=== PATIENT | female | born 1970 | race Caucasian/White ===

== ENCOUNTER → 2020-10-18 10:38 | Outpatient (BNVA) | payer MEDICARE, MEDICAID, SELFPAY | PROVIDERS: PCP Nurse Practitioner; Visit Provider Nurse Practitioner | DX: I10 Essential (primary) hypertension (principal); F41.1 Generalized anxiety disorder | CPT/HCPCS: 80053; 80061; 84443; 85025 ==

== ENCOUNTER → 2021-05-08 14:54 | Outpatient (BNVA) | payer MEDICARE, MEDICAID, SELFPAY | PROVIDERS: PCP Nurse Practitioner; Visit Provider Nurse Practitioner | DX: I10 Essential (primary) hypertension (principal); E78.5 Hyperlipidemia, unspecified | CPT/HCPCS: 80053; 80061; 81000; 85025 ==

== ENCOUNTER 2021-07-10 06:39 | Outpatient (CLI) | payer MEDICARE, MEDICAID, SELFPAY ==
--- NOTE | 2021-07-10 07:15 | USCV_ITS ---
Kylie Cisneros Age: 51 Gender: F : 1970 Exam Date: 07/10/2021 06:53 Ordering Phys: Moe Clayton Technologist: LOLIS [place] [facility] [place]: HEART MURMUR BP: 128 / 83 HR: 77 Rhythm: Sinus Technical Quality: Adequate MEASUREMENTS (Male / Female) Normal Values 2D ECHO LV Diastolic Diameter PLAX 3.2 cm 4.2 - 5.9 / 3.9 - 5.3 cm LV Systolic Diameter PLAX 2.3 cm IVS Diastolic Thickness 1.0 cm 0.6 - 1.0 / 0.6 - 0.9 cm IVS Systolic Thickness 1.6 cm LVPW Diastolic Thickness 1.3 cm 0.6 - 1.0 / 0.6 - 0.9 cm LVPW Systolic Thickness 1.3 cm RV Chamber Size 2.6 cm LVOT Diameter 2.0 cm LV Ejection Fraction 2D Teich 54.3 % LV Ejection Fraction MOD 2C 67.3 % LV Ejection Fraction 2C AL 66.7 % LA Diameter 3.1 cm LA Width 3.1 cm LA Height 3.8 cm RA Width 2.3 cm RA Height 3.6 cm Aorta at Sinotubular Diameter 2.3 cm M-MODE Aortic Annulus Diameter 2.5 cm LA Ao Ratio MM 1.3 MV E Point Septal Separation 0.4 cm DOPPLER AV Peak Velocity 146.0 cm/s LVOT Peak Velocity 82.0 cm/s AV Area Cont Eq vti 1.4 cm squared AV Area Cont Eq pk 1.8 cm squared MV Area PHT 4.5 cm squared Mitral E to A Ratio 1.0 MV E' Velocity 52.0 cm/s Mitral E to MV E' Ratio 9.2 Mitral E to LV E' Lateral Ratio 9.0 Mitral E to LV E' Septal Ratio 9.4 TR Peak Velocity 256.7 cm/s TR Peak Gradient 26.4 mmHg TV Peak E Velocity 51.0 cm/s Right Atrial Pressure 3.0 mmHg Pulmonary Artery Systolic Pressu 29.4 mmHg PV Peak Velocity 76.0 cm/s RV Acceleration Time 0.0 s RV Ejection Time 0.3 s RV AcT/ET 0.1 FINDINGS Left Ventricle Normal left ventricular size, systolic function and wall thickness, with no regional wall motion abnormalities. Normal left ventricular wall thickness. Normal diastolic filling pattern. LV ejection fraction around 67% Right Ventricle The right ventricle is normal in size and function. Right Atrium The right atrium is normal in size. Left Atrium The left atrium is normal in size. Mitral Valve Trace to mild mitral valve regurgitation. Aortic Valve No gross abnormalities noted Tricuspid Valve Trace tricuspid valve regurgitation. . Estimated pulmonary peak systolic pressure of 29 mmHg Pulmonic Valve Pulmonic valve not well visualized. Pericardium Normal pericardium without effusion. Aorta Normal ascending aorta dimension. CONCLUSIONS Normal left ventricular size, systolic function and wall thickness, with no regional wall motion abnormalities. Normal left ventricular wall thickness. Normal diastolic filling pattern. LV ejection fraction around 67%. Trace to mild mitral valve regurgitation. Trace tricuspid valve regurgitation. . Estimated pulmonary peak systolic pressure of 29 mmHg. There is no pericardial effusion. There are no intracardiac masses. No previous study is available for comparison. Dr Vincenzo Cline MD FACC (Electronically Signed) Final Date: 10 July 2021 13:26 S
== END 2021-07-10 06:40 | disposition home or self-care (01) ==
LOC: RAD 06:43
PROVIDERS: PCP Nurse Practitioner; Visit Provider Nurse Practitioner
DX: R01.1 Cardiac murmur, unspecified (principal); I08.1 Rheumatic disorders of both mitral and tricuspid valves
CPT/HCPCS: 93306

== ENCOUNTER → 2021-10-25 09:02 | Outpatient (BNVA) | payer MEDICARE, MEDICAID, SELFPAY | PROVIDERS: PCP Nurse Practitioner; Visit Provider Nurse Practitioner | DX: I10 Essential (primary) hypertension (principal); E78.5 Hyperlipidemia, unspecified | CPT/HCPCS: 80053; 80061; 85025 ==

== ENCOUNTER → 2021-11-02 15:38 | Outpatient (BNVA) | payer MEDICARE, MEDICAID, SELFPAY | PROVIDERS: PCP Nurse Practitioner; Visit Provider Nurse Practitioner | DX: M79.671 Pain in right foot (principal) | CPT/HCPCS: 73630 ==

== ENCOUNTER → 2021-11-08 14:41 | Outpatient (BNVA) | payer MEDICARE, MEDICAID, SELFPAY | PROVIDERS: PCP Nurse Practitioner; Visit Provider Nurse Practitioner | DX: M79.671 Pain in right foot (principal); M25.541 Pain in joints of right hand; M25.551 Pain in right hip; M25.542 Pain in joints of left hand; M47.816 Spondylosis without myelopathy or radiculopathy, lumbar region | CPT/HCPCS: 72100; 73130; 73502; 73630 ==

== ENCOUNTER → 2022-04-30 08:13 | Outpatient (BNVA) | payer MEDICARE, MEDICAID, SELFPAY | PROVIDERS: PCP Nurse Practitioner; Visit Provider Nurse Practitioner | DX: I10 Essential (primary) hypertension (principal); E78.5 Hyperlipidemia, unspecified | CPT/HCPCS: 80053; 80061; 85025 ==

== ENCOUNTER → 2022-08-09 10:06 | Outpatient (BNVA) | payer MEDICARE, MEDICAID, SELFPAY | PROVIDERS: PCP Nurse Practitioner; Visit Provider Nurse Practitioner | DX: I10 Essential (primary) hypertension (principal) | CPT/HCPCS: 80053; 80061; 85025 ==

== ENCOUNTER → 2022-11-22 08:27 | Outpatient (BNVA) | payer MEDICARE, MEDICAID, SELFPAY | PROVIDERS: PCP Nurse Practitioner; Visit Provider Nurse Practitioner | DX: I10 Essential (primary) hypertension (principal); E78.5 Hyperlipidemia, unspecified | CPT/HCPCS: 80053; 80061; 85025 ==

== ENCOUNTER → 2023-05-13 08:49 | Outpatient (BNVA) | payer MEDICARE, MEDICAID, SELFPAY | PROVIDERS: PCP Nurse Practitioner; Visit Provider Nurse Practitioner | DX: E78.5 Hyperlipidemia, unspecified (principal); I10 Essential (primary) hypertension | CPT/HCPCS: 80053; 80061 ==

== ENCOUNTER 2023-06-04 13:52 | Outpatient (CLI) | payer MEDICARE, MEDICAID, SELFPAY ==
--- NOTE | 2023-06-04 14:00 | MM_ITS ---
WS: [id number] BILATERAL 3D TOMOSYNTHESIS DIGITAL SCREENING MAMMOGRAPHY WITH CAD CLINICAL INFORMATION: Z12.31 - Encounter for screening mammogram for malignant ... HISTORY: Screening mammogram. No current complaints. COMPARISON: 2013 TECHNIQUE: Bilateral CC and MLO views. FINDINGS: The breasts are composed of heterogeneous fibroglandular density tissue, which can limit the detectio n of small underlying mass lesions. No suspicious mass, asymmetry, calcifications, or architectural d istortion. No evidence of malignancy. A few tiny incidental punctate calcifications. IMPRESSION: MM/[place] [id number] BI-RADS: 2-Benign FOLLOW UP: 1 Year Follow-up Recommend return to annual screening mammography.
== END 2023-06-04 13:53 | disposition home or self-care (01) ==
LOC: MOBLMAM 14:00
PROVIDERS: PCP Nurse Practitioner; Visit Provider Nurse Practitioner
DX: Z12.31 Encounter for screening mammogram for malignant neoplasm of breast (principal)
CPT/HCPCS: 77063; 77067

== ENCOUNTER → 2023-10-29 09:26 | Outpatient (BNVA) | payer MEDICARE, MEDICAID, SELFPAY | PROVIDERS: PCP Nurse Practitioner; Visit Provider Nurse Practitioner | DX: I10 Essential (primary) hypertension (principal); E78.5 Hyperlipidemia, unspecified; K06.9 Disorder of gingiva and edentulous alveolar ridge, unspecified; K21.9 Gastro-esophageal reflux disease without esophagitis; J30.89 Other allergic rhinitis | CPT/HCPCS: 80053; 80061; 82785; 86001; 86003 ==

== ENCOUNTER → 2023-11-11 09:33 | Outpatient (BNVA) | payer MEDICARE, MEDICAID, SELFPAY | PROVIDERS: PCP Nurse Practitioner; Visit Provider Nurse Practitioner Family | DX: B35.4 Tinea corporis (principal); L85.8 Other specified epidermal thickening; D22.4 Melanocytic nevi of scalp and neck; B35.1 Tinea unguium | CPT/HCPCS: 99203 ==

== ENCOUNTER → 2023-12-02 12:29 | Outpatient (BNVA) | payer MEDICARE, MEDICAID, SELFPAY | PROVIDERS: PCP Nurse Practitioner; Visit Provider Podiatrist Foot & Ankle Surgery | DX: L60.8 Other nail disorders (principal) | CPT/HCPCS: 11750; 99203 ==

== ENCOUNTER → 2023-12-09 08:13 | Outpatient (BNVA) | payer MEDICARE, MEDICAID, SELFPAY | PROVIDERS: PCP Nurse Practitioner; Visit Provider Nurse Practitioner Family | DX: B35.4 Tinea corporis (principal); D22.4 Melanocytic nevi of scalp and neck | CPT/HCPCS: 99213 ==

== ENCOUNTER → 2024-01-02 07:12 | Outpatient (BNVA) | payer MEDICARE, MEDICAID, SELFPAY | PROVIDERS: PCP Nurse Practitioner; Visit Provider Podiatrist Foot & Ankle Surgery | DX: L60.8 Other nail disorders (principal) | CPT/HCPCS: 11750 ==

== ENCOUNTER → 2024-02-12 10:04 | Outpatient (BNVA) | payer MEDICARE, MEDICAID, SELFPAY | PROVIDERS: PCP Nurse Practitioner; Visit Provider Nurse Practitioner | DX: M25.50 Pain in unspecified joint (principal); J30.89 Other allergic rhinitis | CPT/HCPCS: 85651; 86008; 86140 ==

== ENCOUNTER → 2024-02-18 09:24 | Outpatient (BNVA) | payer MEDICARE, MEDICAID, SELFPAY | PROVIDERS: PCP Nurse Practitioner; Referring Provider Nurse Practitioner; Visit Provider Student in an Organized Health Care Education/Training Program | DX: Z12.11 Encounter for screening for malignant neoplasm of colon (principal) | CPT/HCPCS: 99024; 99204 ==

== ENCOUNTER 2024-03-02 07:16 | Day surgery (SDC) | payer MEDICARE, MEDICAID, SELFPAY ==
[2024-03-02 07:31] VITALS: BP 97/81; PULSE 84; RESP 18; TEMP 36.1; O2SAT 99; BMI 31.8
--- NOTE | 2024-03-02 07:31 | ANES.PREANE2 ---
Pre-Anesthetic Assessment Height/Weight: Height 1.6 m Preop Diagnosis: possible diverticulitis Operation Date: 03/02/24 08:20 Proposed Procedures p EGD 40482, 82707, G0105, Z12.11, K21.9(Not Applicable) - Tono Ennis MD s Colonoscopy(Not Applicable) - Tono Ennis MD Familial anesthetic complications: none Was Beta Cat taken within 24 hours: N/A Social No alcohol and No tobacco Exam alert, oriented x 3, clear to auscultation bilaterally and regular rate & rhythm Airway Submandibular: within normal limits Cervical ROM: within normal limits Mallampati: Class II Dentition: full History/ROS No significant history except as noted and No significant complaints Pulmonary Asthma uses inhaler rarely CV/HEM None reported None reported Hepatic None reported GI Gastroesophageal Reflux Disease Metabolic None reported Neuropsych None reported Anesthetic Plan ASA status: 2 Anesthesia: MAC Risk of > 500 ml blood loss (7ml/kg in children): No Medications/Allergies Home Medications Medication Instructions Recorded Confirmed Last Taken Type amlodipine 5 mg tablet (Norvasc) 5 mg PO DAILY #30 tabs 10/29/23 02/27/24 03/01/24 Rx atorvastatin 10 mg tablet (Lipitor) 10 mg PO DAILY #30 tabs 10/29/23 02/27/24 03/01/24 Rx famotidine 40 mg tablet (Pepcid) 40 mg PO DAILY #30 tabs 10/29/23 02/27/24 03/01/24 Rx fluticasone propionate 50 2 spray intranasal DAILY #16 grams 10/29/23 02/27/24 03/01/24 Rx mcg/actuation nasal spray,suspension furosemide 20 mg tablet (Lasix) 20 mg PO DAILY #30 tabs 10/29/23 02/27/24 03/01/24 Rx levocetirizine 5 mg tablet 5 mg PO DAILY #30 tabs 10/29/23 02/27/24 03/01/24 Rx pantoprazole 40 mg tablet,delayed 40 mg PO DAILY #30 tabs 10/29/23 02/27/24 03/01/24 Rx release sucralfate 1 gram tablet (Carafate) 1 g PO BID #60 tabs 10/29/23 02/27/24 03/01/24 Rx valsartan 320 mg tablet (Diovan) 320 mg PO DAILY #30 tabs 10/29/23 02/27/24 03/01/24 Rx venlafaxine 37.5 mg 37.5 mg PO DAILY #30 caps 10/29/23 02/27/24 03/01/24 Rx capsule,extended release 24 hr (Effexor XR) chlorhexidine gluconate 0.12 % 15 ml buccal BID #473 mL 02/12/24 02/27/24 03/01/24 Rx mouthwash (Peridex) ketoconazole 2 % topical cream 1 applic topical BID PRN Rash 02/12/24 02/27/24 03/01/24 History loteprednol etabonate 0.5 % eye 1 drp ophthalmic (eye) .3 times day 02/12/24 02/27/24 02/27/24 History gel drops Allergies Allergy/AdvReac Type Severity Reaction Status Date / Time erythromycin base Allergy Severe ADR-Headach Verified 02/27/24 08:59 e Beef Containing Products AdvReac Severe ADR-Gastrointestinal Verified 02/27/24 08:59 Upset lamotrigine [From Lamictal] AdvReac Severe ADR-Headach Verified 02/27/24 08:59 e PFSH Anesthesia Medical History Lumbar pain with radiation down right leg Environmental and seasonal allergies GABBI (generalized anxiety disorder) Dyslipidemia Asthma GERD (gastroesophageal reflux disease) Hypertension Surgical History (Updated 02/18/24 @ 09:35 by Winifred Tyson, CT) H/O myringotomy (~02/2016) LEFT History of hysterectomy Family History Other Cancer Diabetes Hypertension Stroke Denies family history of Lung disease Social History (Updated 02/18/24 @ 09:35 by Winifred Tyson, CT) Smoking and tobacco/nicotine status: former use of tobacco/nicotine Second hand smoke exposure: No Alcohol intake: never Substance/Drug Use: never Adopted: No Caregiver/support person: No Lives independently: Yes Household members: spouse Housing: House Marital status: Number of children: 3 service: No Current occupational status: unemployed Do you think of yourself as: Straight/Heterosexual Current gender identity: Female Data Anesthesia Cardiac Studies: Echocardiogram 07/10/21
[2024-03-02] MEDS: sodium chloride 0.9% 1,000 ML 30 ML IV (07:39)
--- NOTE | 2024-03-02 08:40 | W.PM.OPSFHP ---
Same Day Surgery H&P Indication for Procedure/HPI DATE OF PROCEDURE: March 02, 2024 CHIEF COMPLAINT/INDICATIONFOR SURGICAL PROCEDURE: Heartburn, screening colonoscopy PREOP DIAGNOSIS: possible diverticulitis PLANNED PROCEDURE: Operation Date: 03/02/24 08:20 Proposed Procedures p EGD 68470, 77112, G0105, Z12.11, K21.9(Not Applicable) - Tono Ennis MD s Colonoscopy(Not Applicable) - Tono Ennis MD Medications/Allergies* Home Medications Medication Instructions Recorded Confirmed Type ketoconazole 2 % topical cream 1 applic topical BID PRN Rash 02/12/24 02/27/24 History loteprednol etabonate 0.5 % eye 1 drp ophthalmic (eye) .3 times day 02/12/24 02/27/24 History gel drops Allergies/Adverse Reactions Allergy/AdvReac Type Severity Reaction Status Date / Time erythromycin base Allergy Severe ADR-Headach Verified 02/27/24 08:59 e Beef Containing Products AdvReac Severe ADR-Gastrointestinal Verified 02/27/24 08:59 Upset lamotrigine [From Lamictal] AdvReac Severe ADR-Headach Verified 02/27/24 08:59 e Current Medications: Generic Name Dose Route Start Last Admin Trade Name Freq PRN Reason Stop Dose Admin Sodium Chloride 1,000 mls @ 30 mls/hr 03/02/24 07:30 03/02/24 07:39 Sodium Chloride 0.9% IV 03/03/24 07:29 30 mls/hr .Q24H CHON Administration Pertinent History/Comorbid Conditions* Medical History (Updated 11/30/23 @ 20:15 by PATRICIA Jordan) Lumbar pain with radiation down right leg Environmental and seasonal allergies GABBI (generalized anxiety disorder) Dyslipidemia Asthma GERD (gastroesophageal reflux disease) Hypertension Surgical History (Updated 11/13/19 @ 10:46 by Li Weldon MD) H/O myringotomy (~02/2016) LEFT History of hysterectomy Family History (Updated 10/18/20 @ 10:00 by vAa Arrieta MA) Diabetes Cancer Hypertension Stroke Denies family history of Lung disease Social History Smoking and tobacco/nicotine status: former use of tobacco/nicotine Second hand smoke exposure: No Alcohol intake: never Substance/Drug Use: never Adopted: No Caregiver/support person: No Lives independently: Yes Household members: spouse Housing: House Marital status: Number of children: 3 service: No Current occupational status: unemployed Do you think of yourself as: Straight/Heterosexual Current gender identity: Female Pertinent Exam Findings alert, oriented x 3, regular rate & rhythm and procedure specific exam findings Abdomen soft, NT, ND Recommendations Surgery/Procedure today Other Plans: EGD & colonoscopy today Coding Level of Care Code Acute Code for Chg Fwd Time Spent (min) 30
[2024-03-02 10:05] VITALS: BP 117/65; PULSE 72; RESP 16; TEMP 36.3; O2SAT 95
--- NOTE | 2024-03-02 10:30 | ANE.PACU2 ---
Inpatient post-anesthesia follow up: Airway intact: Yes Vital signs: Temperature 97.3 F Pulse Rate 74 Respiratory Rate 18 Blood Pressure 109/60 Pulse Oximetry 98 Oxygen Delivery Me thod Room Air Oxygen Flow Rate Fraction of Inspir ed Oxygen Hydration adequate: Yes Nausea and vomiting: No Pain level: 1 Mental status: Baseline
[2024-03-02 10:31] VITALS: BP 109/60; PULSE 74; RESP 18; O2SAT 98
== END 2024-03-02 10:31 | disposition home or self-care (01) ==
PROVIDERS: PCP Nurse Practitioner; Visit Provider Student in an Organized Health Care Education/Training Program
PROC: 0DJ08ZZ Inspection of Upper Intestinal Tract, Via Natural or Artificial Opening Endoscopic (ICD-10-PCS; CPT 43235; principal; 2024-03-02 08:20)
PROC: 0DJD8ZZ Inspection of Lower Intestinal Tract, Via Natural or Artificial Opening Endoscopic (ICD-10-PCS; CPT 45378; 2024-03-02 08:20)
DX: Z12.11 Encounter for screening for malignant neoplasm of colon (principal); D12.3 Benign neoplasm of transverse colon; K29.30 Chronic superficial gastritis without bleeding; K22.10 Ulcer of esophagus without bleeding; K57.30 Diverticulosis of large intestine without perforation or abscess without bleeding
CPT/HCPCS: 43239; 44391; 45380; 88305; 88312; 88342; J2704; J7030

== ENCOUNTER → 2024-03-19 09:14 | Outpatient (BNVA) | payer MEDICARE, MEDICAID, SELFPAY | PROVIDERS: PCP Nurse Practitioner; Visit Provider Student in an Organized Health Care Education/Training Program | DX: Z09 Encounter for follow-up examination after completed treatment for conditions other than malignant neoplasm (principal) | CPT/HCPCS: 99214 ==

== ENCOUNTER → 2024-05-20 12:17 | Outpatient (BNVA) | payer MEDICARE, MEDICAID, SELFPAY | PROVIDERS: PCP Nurse Practitioner; Visit Provider Nurse Practitioner | DX: I10 Essential (primary) hypertension (principal); E78.5 Hyperlipidemia, unspecified; E55.9 Vitamin D deficiency, unspecified | CPT/HCPCS: 80053; 80061; 82306; 82607; 84443; 85025 ==

== ENCOUNTER 2024-06-11 09:56 | Outpatient (CLI) | payer MEDICARE, MEDICAID, SELFPAY ==
--- NOTE | 2024-06-11 10:00 | MM_ITS ---
WS: [id number] Bilateral screening 3D tomosynthesis digital mammogram, 06/11/2024 10:00 AM Clinical Data: SCREENING Comparison: 06/04/2023, 03/30/2014, 04/17/2012, 04/03/2012, 11/27/2010. Findings: No spiculated masses or clustered calcifications are seen. There are no secondary signs of carcinoma . MM/MM scr BI tomosynthesis [id number] Impression: Negative bilateral mammogram unchanged. Recommend annual screening mammograms. BIRADS: 1 - Negative. FOLLOW UP: 1 Year Follow-up DENSITY: There are scattered areas of fibroglandular density. The CAD body design checker was used
== END 2024-06-11 09:57 | disposition home or self-care (01) ==
LOC: MOBLMAM 09:58
PROVIDERS: PCP Nurse Practitioner; Visit Provider Nurse Practitioner
DX: Z12.31 Encounter for screening mammogram for malignant neoplasm of breast (principal)
CPT/HCPCS: 77063; 77067

== ENCOUNTER → 2024-08-03 10:40 | Outpatient (BNVA) | payer MEDICARE, MEDICAID, SELFPAY | PROVIDERS: PCP Nurse Practitioner; Visit Provider Nurse Practitioner | DX: E88.810 Metabolic syndrome (principal); I10 Essential (primary) hypertension; E78.5 Hyperlipidemia, unspecified; K06.9 Disorder of gingiva and edentulous alveolar ridge, unspecified; K21.9 Gastro-esophageal reflux disease without esophagitis; J30.89 Other allergic rhinitis; E55.9 Vitamin D deficiency, unspecified; E53.8 Deficiency of other specified B group vitamins; Z79.899 Other long term (current) drug therapy | CPT/HCPCS: 80053; 82306; 82607 ==

== ENCOUNTER → 2024-12-15 09:31 | Outpatient (BNVA) | payer MEDICARE, MEDICAID, SELFPAY | PROVIDERS: PCP Nurse Practitioner; Visit Provider Nurse Practitioner | DX: M25.531 Pain in right wrist (principal); I10 Essential (primary) hypertension | CPT/HCPCS: 73110; 80053 ==

== ENCOUNTER → 2024-12-17 10:01 | Outpatient (BNVA) | payer MEDICARE, MEDICAID, SELFPAY | PROVIDERS: PCP Nurse Practitioner; Visit Provider Surgery | DX: K21.9 Gastro-esophageal reflux disease without esophagitis (principal); K22.2 Esophageal obstruction; R13.10 Dysphagia, unspecified | CPT/HCPCS: 99214 ==

== ENCOUNTER 2024-12-23 10:06 | Outpatient (CLI) | payer MEDICARE, MEDICAID, SELFPAY ==
--- NOTE | 2024-12-23 14:43 | FL_ITS ---
FL barium swallow modifd [id number] REASON FOR EXAM: Food sticking. FLUOROSCOPY TIME: 2min [id number] # OF SPOT FILMS: None TECHNIQUE: Examination was supervised by the speech therapy department. The patient was examined in the sitting upright lateral projection. The swallowing of varying consistencies of barium was monitored fluoroscopically and video recorded. FINDINGS: Barium tablet transitioned No impedance of the transit of the barium tablet through the esophagus and into the stomach. IMPRESSION: A detailed report of the swallowing will be rendered by the speech therapy department. No aspiration and normal transition of the barium tablet. MTDD
== END 2024-12-23 10:07 | disposition home or self-care (01) ==
LOC: RAD 10:07
PROVIDERS: PCP Nurse Practitioner; Visit Provider Surgery
DX: K21.9 Gastro-esophageal reflux disease without esophagitis (principal); K22.2 Esophageal obstruction
CPT/HCPCS: 74230; 92611

== ENCOUNTER → 2024-12-28 09:04 | Outpatient (BNVA) | payer MEDICARE, MEDICAID, SELFPAY | PROVIDERS: PCP Nurse Practitioner; Visit Provider Specialist | DX: G56.01 Carpal tunnel syndrome, right upper limb (principal); Z01.818 Encounter for other preprocedural examination | CPT/HCPCS: 36415; 73110; 80053; 81001; 85025; 99204 ==

== ENCOUNTER 2025-01-04 08:32 | Outpatient (CLI) | payer MEDICARE, MEDICAID, SELFPAY ==
--- NOTE | 2025-01-04 09:15 | FL_ITS ---
WS: [id number] FL barium swallow [id number] REASON FOR EXAM: Food sticking FLUOROSCOPY TIME: 1min [id number] # OF SPOT FILMS: Multiple TECHNIQUE: Patient was examined in the upright AP and lateral projections, prone ZHANG, and supine. Swallowing of barium was monitored fluoroscopically and recorded with multiple spot films. The cervical esophagus demonstrated normal motility and anatomy. There was no laryngeal ventricle Penetration by contrast and no aspiration. FINDINGS: There is a large hiatal hernia. The distal esophagus superior to the hiatal hernia shows moderate dilatation. There is infrequent intermittent loss of the primary peristaltic wave with stasis of contrast within the dilated esophagus. Minimal tertiary contractions produce mild retrograde reflux of the retained contrast to the midesophagus. Mild gastroesophageal reflux from the large hiatal hernia into the distal esophagus could only be elicited in the supine position. FL/FL barium swallow [id number] IMPRESSION: Large hiatal hernia and dilatation of the distal esophagus with intermittent es ophageal dysmotility as above.
== END 2025-01-04 08:33 | disposition home or self-care (01) ==
LOC: RAD 08:33
PROVIDERS: PCP Nurse Practitioner; Visit Provider Surgery
DX: K44.9 Diaphragmatic hernia without obstruction or gangrene (principal); K21.9 Gastro-esophageal reflux disease without esophagitis; K22.89 Other specified disease of esophagus
CPT/HCPCS: 74220

== ENCOUNTER 2025-01-05 07:57 | Day surgery (SDC) | payer MEDICARE, MEDICAID, SELFPAY ==
[2025-01-05] VITALS (10 sets, daily range): BP systolic 99–134; BP diastolic 74–95; PULSE 70–82; RESP 16–17; TEMP 36.2–36.3; O2SAT 94–100; BMI 32.8
[2025-01-05] MEDS: acetaminophen 1,000 MG/100 ML PIGGYBACK 400 MG IV (08:19)
--- NOTE | 2025-01-05 09:00 | P.HPUD_ITS ---
Surgery/Procedure H&P Update DATE OF PROCEDURE: January 06, 2025 DATE H&P PERFORMED: 01/01/25 H&P UPDATE INFORMATION: I have reviewed H&P completed within last 30 days, I have examined patient prior to procedure, No changes to prior documentation, H&P is in [facility] EMR on date indicated and Risks and benefits of the procedure reviewed PREOP DIAGNOSIS: Carpal tunnel syndrome PLANNED PROCEDURE: Operation Date: 01/05/25 09:30 Proposed Procedures p RIGHT Carpal Tunnel Release(Right) - Sameera Nash MD Related Problem List Diagnoses 1. Carpal tunnel syndrome on right:
--- NOTE | 2025-01-05 09:03 | ANES.PREANE2 ---
Pre-Anesthetic Assessment Height/Weight: Height 5 ft 3 in Weight 185 lb Temp Pulse Resp BP Pulse Ox O2 Del Method 97.4 F L 70 17 134/95 98 Room Air 01/05/25 08:09 01/05/25 08:09 01/05/25 08:09 01/05/25 08:09 01/05/25 08:09 01/05/25 08:11 Preop Diagnosis: Carpal tunnel syndrome Operation Date: 01/05/25 09:30 Proposed Procedures p RIGHT Carpal Tunnel Release(Right) - Sameera Nash MD Was Beta Cat taken within 24 hours: N/A Was Clonidine taken within 24 hours: N/A Last intake: Intake Last Liquid Date 01/04/25 Last Liquid Time 20:00 Last Solid Date 01/04/25 Last Solid Time 19:00 Social No alcohol and No tobacco Exam alert, oriented x 3, clear to auscultation bilaterally and regular rate & rhythm Airway Submandibular: within normal limits Cervical ROM: within normal limits Mallampati: Class II Dentition: full Anesthetic Plan ASA status: 3 Anesthesia: General Other: No prior issues with anesthesia NPO since yesterday evening History of GERD on Pepcid and Protonix Type 2 diabetes, on semaglutide Hypertension on amlodipine Asthma Patient gets a rash and has GI upset with beef containing products, treat like alpha gal Labs 12/28/2024 and acceptable for procedure Plan for general anesthesia Medications/Allergies Home Medications ?Medication ?Instructions ?Recorded ?Confirmed ?Last Taken ?Type ketoconazole 2 % topical cream 1 applic topical BID PRN Rash 02/12/24 01/04/25 2 Weeks Ago History ~12/15/24 loteprednol etabonate 0.5 % eye 1 drp ophthalmic (eye) .3 times day 02/12/24 01/04/25 01/03/25 History gel drops chlorhexidine gluconate 0.12 % 15 ml buccal BID #473 mL 10/26/24 01/04/25 12/30/24 Rx mouthwash (Peridex) magnesium oxide 250 mg PO DAILY 10/26/24 01/04/25 12/21/24 History amlodipine 5 mg tablet (Norvasc) 5 mg PO DAILY #30 tabs 12/15/24 01/04/25 01/03/25 Rx atorvastatin 10 mg tablet (Lipitor) 10 mg PO DAILY #30 tabs 12/15/24 01/04/25 01/03/25 Rx famotidine 40 mg tablet (Pepcid) 40 mg PO DAILY #30 tabs 12/15/24 01/04/25 01/03/25 Rx furosemide 20 mg tablet (Lasix) 20 mg PO DAILY #30 tabs 12/15/24 01/04/25 01/04/25 Rx levocetirizine 5 mg tablet 5 mg PO DAILY #30 tabs 12/15/24 01/04/25 01/03/25 Rx pantoprazole 40 mg tablet,delayed 40 mg PO DAILY #30 tabs 12/15/24 01/04/25 01/03/25 Rx release semaglutide 0.25 mg or 0.5 mg (2 0.25 mg (0.368 mL) SUBCUT .weekly 12/15/24 01/04/25 Unknown Rx mg/3 mL) subcutaneous pen injector #3 mL (Ozempic) sucralfate 1 gram tablet (Carafate) 1 g PO BID #60 tabs 12/15/24 01/04/25 01/04/25 Rx valsartan 320 mg tablet (Diovan) 320 mg PO DAILY #30 tabs 12/15/24 01/04/25 01/04/25 Rx venlafaxine 37.5 mg 37.5 mg PO DAILY #30 caps 12/15/24 01/01/25 12/30/24 Rx capsule,extended release 24 hr (Effexor XR) fluticasone propionate 50 2 spray intranasal DAILY #16 grams 01/02/25 01/04/25 Unknown Rx mcg/actuation nasal spray,suspension Allergies Allergy/AdvReac Type Severity Reaction Status Date / Time erythromycin base Allergy Severe ADR-Headach Verified 01/05/25 08:09 e Beef Containing Products AdvReac Severe ADR-Gastrointestinal Verified 01/05/25 08:09 Upset lamotrigine (From Lamictal) AdvReac Severe ADR-Headach Verified 01/05/25 08:09 e metformin AdvReac Severe ADR-Diarrhe Verified 01/05/25 08:09 a Current Medications Generic Name Dose Route Start Last Admin Trade Name Freq PRN Reason Stop Dose Admin Sodium Chloride 1,000 mls @ 30 mls/hr 01/05/25 08:00 01/05/25 08:19 Sodium Chloride 0.9% IV 01/06/25 07:59 30 mls/hr .Q24H CHON Administration PFSH Anesthesia Medical History Lumbar pain with radiation down right leg Environmental and seasonal allergies GABBI (generalized anxiety disorder) Dyslipidemia Asthma GERD (gastroesophageal reflux disease) Hypertension Surgical History History of surgery on right wrist pin removed History of colonoscopy 03/02/24 [facility] diverticuli History of esophagogastroduodenoscopy (EGD) 03/02/24 [facility] H/O myringotomy (~02/2016) LEFT History of hysterectomy Family History Other Cancer Diabetes Hypertension Stroke Denies family history of Lung disease Social History Smoking and tobacco/nicotine status: former use of tobacco/nicotine Second hand smoke exposure: No Alcohol intake: never Substance/Drug Use: never Adopted: No Caregiver/support person: No Lives independently: Yes Household members: spouse Housing: House Marital status: Number of children: 3 service: No Current occupational status: unemployed Do you think of yourself as: Straight/Heterosexual Current gender identity: Female Data Anesthesia Cardiac Studies: Echocardiogram 07/10/21
[2025-01-05] MEDS: ceFAZolin 2,000 mg SDV 2000 MG IVP (10:40)
[2025-01-05] MEDS: BUPivacaine 0.5% INJ 30 mL XX (10:56)
--- NOTE | 2025-01-05 11:29 | PM.OP ---
Operative Report Date of procedure: January 05, 2025 Pre-op diagnosis: Right carpal tunnel syndrome Post-op diagnosis: Right carpal tunnel syndrome Post-op findings: Significant compression across the carpal canal involving the median nerve Procedure done: Right carpal tunnel release Implants: None Specimens removed/disposition: None Pathology: None Surgeon: Sameera Nash MD Chemical Production Engineer: None Anesthesia: General (Per LMA, ASA 3) Estimated blood loss (mL): 1 Tourniquet time (min): 17 (At 250 mmHg) IV fluids (mL): 400 Urine output (mL): 0 (No Claudio) Complications: None Findings: Significant compression across carpal canal Condition: stable Disposition: PACU Brief History: This 54-year-old woman presented to the office with complaints of severe right wrist and hand pain. The patient described burning and stinging as well as pain radiating into all of her fingers except her small finger. Although she did not have nerve conduction studies, she had a significantly positive Tinel's as well as a positive Phalen's test consistent with carpal tunnel. Her symptoms were also consistent with carpal tunnel. She wished to proceed with operative intervention in the form of carpal tunnel release. While in the office, questions were answered consents were signed and preparation was made for the surgical procedure. The patient was seen on the morning of surgery and given further opportunity to ask questions. Procedure: The patient was brought to the operating theater. The patient had a general anesthesia per LMA, ASA 3. The tourniquet was elevated to 250 mmHg for a total tourniquet time of 17 minutes. The patient was also given Ancef 2 g preoperatively. The arm was then prepped and draped with DuraPrep in usual fashion with the arm draped free. A surgical pause was performed. At the time, the surgical pause, we confirmed the site and side of surgery. We also confirmed the patient's identity, appropriate and timely administration of preoperative antibiotics and preoperative surgical markings. An incision was then made along the thenar crease. The incision crossed the wrist joint in a curvilinear fashion. Dissection continued through skin and soft tissues using a scalpel. The palmaris longus was identified along with the transverse carpal ligament. Each of these was released carefully to avoid injury to the median nerve. We were able to dissect gently into the carpal canal which was noted to be quite tight with significant compression across the median nerve. The nerve was visualized and was an hourglass shape. The canal was subsequently palpated to assure there was no bony encroachment upon the canal. The canal was then palpated distally and proximally to assure that my small finger was passed easily without impingement. Finding this to be so, attention was directed to closure. The wound was irrigated with ropivacaine plain. It was then closed with 3-0 Dermabond, OpSite nylon in an interrupted mattress fashion. Sterile dressing was then placed consisting of Dermabond, OpSite, fluffed fluffs, sterile soft roll, and an Luis wrap. The tourniquet was released after 17 minutes. There were no complications. There were no specimens. The procedure was well tolerated. Plan is the patient will be discharged home. Related Problem List Diagnoses 1. Carpal tunnel syndrome on right:
--- NOTE | 2025-01-05 12:33 | ANE.PACU2 ---
Inpatient post-anesthesia follow up: Airway intact: Yes Vital signs: Temperature 97.2 F Pulse Rate 78 Respiratory Rate 16 Blood Pressure 114/82 Pulse Oximetry 95 Oxygen Delivery Me thod Room Air Oxygen Flow Rate 8 Fraction of Inspir ed Oxygen Hydration adequate: Yes Nausea and vomiting: No Pain level: 1 Mental status: Baseline
== END 2025-01-05 12:33 | disposition home or self-care (01) ==
PROVIDERS: PCP Nurse Practitioner; Visit Provider Specialist
PROC: (CPT 64721; principal; 2025-01-05 09:30)
DX: G56.01 Carpal tunnel syndrome, right upper limb (principal); K21.9 Gastro-esophageal reflux disease without esophagitis; E11.9 Type 2 diabetes mellitus without complications; I10 Essential (primary) hypertension; J45.909 Unspecified asthma, uncomplicated; E78.5 Hyperlipidemia, unspecified; F41.9 Anxiety disorder, unspecified; Z87.891 Personal history of nicotine dependence
CPT/HCPCS: 64721; J0131; J0690; J2250; J2704; J3010; J3490; J7030

== ENCOUNTER → 2025-01-12 07:56 | Outpatient (BNVA) | payer MEDICARE, MEDICAID, SELFPAY | PROVIDERS: PCP Nurse Practitioner; Visit Provider Surgery | DX: Z09 Encounter for follow-up examination after completed treatment for conditions other than malignant neoplasm (principal); B37.81 Candidal esophagitis; Z79.1 Long term (current) use of non-steroidal anti-inflammatories (NSAID); K44.9 Diaphragmatic hernia without obstruction or gangrene | CPT/HCPCS: 80048; 80076; 99214 ==

== ENCOUNTER → 2025-01-18 13:32 | Outpatient (BNVA) | payer MEDICARE, MEDICAID, SELFPAY | PROVIDERS: PCP Nurse Practitioner; Visit Provider Nurse Practitioner | DX: Z98.890 Other specified postprocedural states (principal) | CPT/HCPCS: 99024 ==

== ENCOUNTER 2025-06-15 11:43 | Outpatient (CLI) | payer MEDICARE, MEDICAID, SELFPAY ==
--- NOTE | 2025-06-15 11:40 | MM_ITS ---
WS: [id number] Bilateral screening 3D tomosynthesis digital mammogram, 06/15/2025 11:48 AM Clinical Data: Z12.31 - Encounter for screening mammogram for malignant ... Comparison: 06/11/2024, 06/04/2023, 03/30/2014, 04/17/2012, 04/03/2012, 11/27/2010. Findings: No spiculated masses or clustered calcifications are seen. There are no secondary signs of carcinoma. MM/MM scr BI tomosynthesis [id number] Impression: Negative bilateral mammogram unchanged. Recommend annual screening mammograms. BIRADS: 1 - Negative. FOLLOW UP: 1 Year Follow-up DENSITY: There are scattered areas of fibroglandular density. The CAD ends down checker was used
== END 2025-06-15 11:44 | disposition home or self-care (01) ==
LOC: MOBLMAM 11:44
PROVIDERS: PCP Nurse Practitioner; Visit Provider Nurse Practitioner
DX: Z12.31 Encounter for screening mammogram for malignant neoplasm of breast (principal); R92.323 Mammographic fibroglandular density, bilateral breasts
CPT/HCPCS: 77063; 77067